=== PATIENT | male | born 1980 | race Caucasian/White ===

== ENCOUNTER 2024-08-16 07:04 | Emergency (ER) | payer MEDICAID ==
[~2024-08-16] VITALS: Ht 162.6 cm; Wt 59.5 kg
[2024-08-16] MEDS: ketorolac trometh 15mg/ml vial 15 MG/ML ML IM ONE (08:56)
[2024-08-16] MEDS: TETanus/Pertussis (Acell)/Diphther VAC/PF (Tdap-Adult) 0.5ml syringe IMVAC ONE (08:57)
[2024-08-16] MEDS ORDERED: IBUP-1985 PO (09:13)
[2024-08-16] MEDS ORDERED: CYCL-1 PO (09:15)
[2024-08-16 09:45] VITALS: BP 115/97; PULSE 73; RESP 16; TEMP 98; O2SAT 100
== END 2024-08-16 09:47 | disposition home or self-care (01) ==
LOC: ER 07:05
DX: S40.211A Abrasion of right shoulder, initial encounter (principal); S50.312A Abrasion of left elbow, initial encounter; S30.811A Abrasion of abdominal wall, initial encounter; S00.31XA Abrasion of nose, initial encounter; S00.01XA Abrasion of scalp, initial encounter; S09.8XXA Other specified injuries of head, initial encounter; M54.2 Cervicalgia; Y08.89XA Assault by other specified means, initial encounter; Y93.89 Activity, other specified; Y92.89 Other specified places as the place of occurrence of the external cause; Y99.8 Other external cause status
CPT/HCPCS: 70450; 72125; 90471; 90715; 96372; 99285; J1885